=== PATIENT | male | born 1970 | race Caucasian/White ===

== ENCOUNTER 2018-03-19 15:38 | Emergency (ER) | payer SELFPAY, MEDICAID ==
[2018-03-19] MEDS: ACETAMINOPHEN 500 MG TAB PO (17:52)
[2018-03-19] MEDS: IBUPROFEN 600 MG TAB PO (17:53)
== END 2018-03-19 19:48 | disposition left against medical advice (07) ==
LOC: FTE 15:38
DX: R05 Cough (principal); R11.2 Nausea with vomiting, unspecified; R51 Headache; R09.81 Nasal congestion
CPT/HCPCS: 71045; 87880; 99284-25

== ENCOUNTER 2018-05-22 21:31 | Emergency (ER) | payer SELFPAY | END 2018-05-22 23:31 | disposition left against medical advice (07) | LOC: E/R 21:31 | DX: Z53.21 Procedure and treatment not carried out due to patient leaving prior to being seen by health care provider (principal) ==